=== PATIENT | male | born 1965 | race Caucasian/White ===

== ENCOUNTER → 2018-03-18 | Outpatient (CLI) | payer BC ==
--- NOTE | 2018-03-18 08:42 | Diagnostic Imaging Report ---
PROCEDURE:US AORTA RETROPERITONEAL JARRETT COMPARISON:None. INDICATIONS:Aortic Atherosclerosis TECHNIQUE:Ultrasound was performed of the abdominal aorta. FINDINGS: AORTA:Normal caliber with measurements of 2.5 cm proximally, mid aorta 2.3 cm and distal aorta measures 1.7 cm. No aneurysm or dissection is identified. OTHER:Negative. CONCLUSION:Normal abdominal aorta. Chris Villalobos D.O. Dictated by: Chris Villalobos D.O. on 03/18/2018 at 8:48 Electronically approved by: Chris Villalobos D.O. on 03/18/2018 at 8:48
== END ==
LOC: US 07:43
PROVIDERS: ATTEND Family Medicine
DX: I70.0 Atherosclerosis of aorta (principal)
CPT/HCPCS: 76770